=== PATIENT | female | born 1965 | race Caucasian/White ===

== ENCOUNTER 2016-09-08 13:11 | Observation (INO) | payer BC ==
[2016-09-08] VITALS (7 sets, daily range): BP systolic 125–175; BP diastolic 71–84; PULSE 70–94; RESP 16–20; TEMP 97.9–98.6; O2SAT 94–100
[~2016-09-08] VITALS: Ht 160 cm; Wt 75.0 kg
[~2016-09-08 13:11] MED LIST: PHEN-329 PO; SYNT75TA PO
--- NOTE | 2016-09-08 13:16 | PD ---
Physical Exam Date Seen by Provider: September 08, 2016 Time Seen by Provider: 13:14 Narrative Pt is a 51 year old female presenting to the ED with c/o chest pain, dizziness, feeling as if she is going to pass out. This started at 11:30 this morning. Pain radiates through her left shoulder, mild nausea. No tobacco use. VSS. Awaiting bed placement. MDM Supervised Visit with CAROLINE: Yoly Ortega September 08, 2016 13:16
[2016-09-08] MEDS ORDERED: NITROGLYCERIN 0.4 MG SL 25 TABS/BTL SL ONE (13:30)
[2016-09-08] MEDS ORDERED: SODIUM CHLORID 0.9% 500 ML INJ 500 ML IV ONE (13:30)
[2016-09-08] MEDS ORDERED: ASPIRIN 325 MG TAB PO ONE (13:30)
[2016-09-08] MEDS ORDERED: BUPR150XL PO (13:34)
[2016-09-08] MEDS ORDERED: ESTR1TAB PO (13:34)
[2016-09-08] MEDS ORDERED: LIPI10TA PO (13:34)
[2016-09-08] MEDS ORDERED: LEVO.075 PO (13:34)
[2016-09-08 13:56] LABS: AUTOMATED NEUTROPHIL # 5.6 TH/MM3 (1.8-7.7); BASOPHIL % 0.4 % (0.0-2.0); EOSINOPHIL # 0.2 TH/MM3 (0-0.4); HEMATOCRIT 37.4 % (35.0-46.0); HEMO FLAGS DIFF FINAL; LYMPHOCYTE # 1.8 TH/MM3 (1.0-4.8); MEAN CELL VOLUME 87.9 FL (80.0-100.0); MEAN CORPUSCULAR HEMOGLOBIN 29.4 PG (27.0-34.0); MEAN CORPUSCULAR HGB CONC 33.5 % (32.0-36.0); MONO % 4.5 % (0.0-8.0); NEUT % 70.1 % (16.0-70.0); PLATELET COUNT 233 TH/MM3 (150-450); RED BLOOD COUNT 4.26 MIL/MM3 (4.00-5.30); RED CELL DISTRIBUTION WIDTH 13.5 % (11.6-17.2)
--- NOTE | 2016-09-08 14:09 | RADRPT ---
EXAM DATE/TIME: 09/08/2016 13:28 [facility] COMPARISON: CHEST PA & LAT, June 01, 2013, 20:23. INDICATIONS : Chest pain today. MEDICAL HISTORY : None. SURGICAL HISTORY : None. ENCOUNTER: Initial ACUITY: 1 day PAIN SCORE: 3/10 LOCATION: Bilateral chest FINDINGS: A single view of the chest demonstrates the lungs to be symmetrically aerated without evidence of mas s, infiltrate or effusion. The cardiomediastinal contours are unremarkable. Osseous structures are intact. CONCLUSION: No evidence of acute cardiopulmonary disease. Sujit Perez MD on September 08, 2016 at 14:07 Board Certified Radiologist. This report was verified electronically.
[2016-09-08 14:10] LABS: INTERNATIONAL NORMALIZED RATIO 0.9 RATIO; PROTHROMBIN TIME - PATIENT 9.9 SEC (9.8-11.6)
[2016-09-08 14:15] LABS: ANION GAP 7 MEQ/L (5-15); AST (GOT) 24 U/L (15-37); BICARBONATE 28.4 MEQ/L (21.0-32.0); BLOOD UREA NITROGEN 14 MG/DL (7-18); CHLORIDE 103 MEQ/L (98-107); GLOMERULAR FILTRATION RATE 74 ML/MIN (>89); MAGNESIUM 1.9 MG/DL (1.5-2.5); POTASSIUM 3.7 MEQ/L (3.5-5.1); SODIUM (NA) 138 MEQ/L (136-145)
[2016-09-08 14:21] LABS: ALKALINE PHOSPHATASE 112 U/L (45-117); ALT (GPT) 48 U/L (10-53); TOTAL BILIRUBIN ADULT 0.2 MG/DL (0.2-1.0)
[2016-09-08 14:27] LABS: CREATINE KINASE 64 U/L (26-192)
--- NOTE | 2016-09-08 14:54 | PD ---
HPI Chief Complaint: Chest Pain Time Seen by Provider: 14:51 Travel History International Travel<30 days: No Contact w/Intl Traveler<30days: No Traveled to known affect area: No History of Present Illness HPI 51-year-old female that presents to the ED for evaluation of left-sided chest pain to his to the shoulder that comes and goes. Per patient he started 11:00. Per patient she feels lightheaded as well. Per patient pain is not severe but achy. Per patient he comes and goes and nothing really makes it better or worse. She has not taken anything for this. She has no history of high blood pressure, high cholesterol, smoking. She does have a family history of heart disease on the mother who apparently had some sort of stress related or heart attack. She denies any abdominal pain. No nausea or vomiting. No other medical problems reported. She has not seen anybody for this. She has not had any workup for this. 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 She denies any drugs or alcohol. Pain currently is 4 out of 10. It radiates to the left shoulder. PFSH Past Medical History Autoimmune Disease: No High Cholesterol: Yes Diminished Hearing: No Thyroid Disease: Yes ?: Not Past Surgical History Appendectomy: Yes Section: Yes (X 2) Hysterectomy: Yes Other Surgery: Yes (BOWEL RESECTION) Social History Alcohol Use: Yes (COUPLE TIMES A MONTH) Tobacco Use: No Substance Use: No Allergies-Medications (Allergen,Severity, Reaction): Coded Allergies: Penicillin (Verified Allergy, Severe, Anaphylaxis, 09/08/16) Reported Meds & Prescriptions Reported Meds & Active Scripts Active Reported Lipitor (Atorvastatin Calcium) 10 Mg Tab 10 Mg PO HS Estradiol 1 Mg Tab 1 Mg PO DAILY Wellbutrin Xl 24 HR (Bupropion HCl) 150 Mg Tab 150 Mg PO DAILY Synthroid (Levothyroxine Sodium) 75 Mcg Tab 75 Mcg PO DAILY Review of Systems Except as stated in HPI: all other systems reviewed are Neg Physical Exam Narrative GENERAL: SKIN: Warm and dry. HEAD: Atraumatic. Normocephalic. EYES: Pupils equal and round. No scleral icterus. No injection or drainage. ENT: No nasal bleeding or discharge. Mucous membranes pink and moist. Tongue is midline. No uvula deviation. NECK: Trachea midline. No JVD. CARDIOVASCULAR: Regular rate and rhythm. No murmurs, S3, S4. Chest pain is not reproducible with touch. RESPIRATORY: No accessory muscle use. Clear to auscultation. Breath sounds equal bilaterally. GASTROINTESTINAL: Abdomen soft, non-tender, nondistended. Hepatic and splenic margins not palpable. MUSCULOSKELETAL: Extremities without clubbing, cyanosis, or edema. No obvious deformities. Full range of motion of the upper and lower extremities bilaterally. 2+ pulses bilaterally. NEUROLOGICAL: Awake and alert. No obvious cranial nerve deficits. Motor grossly within normal limits. Five out of 5 muscle strength in the arms and legs. Normal speech. PSYCHIATRIC: Appropriate mood and affect; insight and judgment normal. Data Data Last Documented VS Vital Signs Date Time Temp Pulse Resp B/P Pulse Ox O2 Delivery O2 Flow Rate FiO2 09/08/16 13:14 97.9 94 16 175/84 98 Orders Electrocardiogram (09/08/16 ) Electrocardiogram (09/08/16 13:22) Ckmb (Isoenzyme) Profile (09/08/16 13:22) Complete Blood Count With Diff (09/08/16 13:22) Comprehensive Metabolic Panel (09/08/16 13:22) Magnesium (Mg) (09/08/16 13:22) Prothrombin Time / Inr (Pt) (09/08/16 13:22) Act Partial Throm Time (Ptt) (09/08/16 13:22) Troponin I (09/08/16 13:22) Lipase (09/08/16 13:22) Chest, Single Ap (09/08/16 13:22) Ecg Monitoring (09/08/16 13:22) Bilateral Bp Monitoring (09/08/16 13:22) Iv Access Insert/Monitor (09/08/16 13:22) Oximetry (09/08/16 13:22) Oxygen Administration (09/08/16 13:22) Aspirin (Aspirin) (09/08/16 13:30) Nitroglycerin Sl (Nitrostat Sl) (09/08/16 13:30) Sodium Chlorid 0.9% 500 Ml Inj (Ns 500 M (09/08/16 13:30) Labs Laboratory Tests Test 09/08/16 13:35 White Blood Count 8.0 TH/MM3 Red Blood Count 4.26 MIL/MM3 Hemoglobin 12.5 GM/DL Hematocrit 37.4 % Mean Corpuscular Volume 87.9 FL Mean Corpuscular Hemoglobin 29.4 PG Mean Corpuscular Hemoglobin 33.5 % Concent Red Cell Distribution Width 13.5 % Platelet Count 233 TH/MM3 Mean Platelet Volume 9.4 FL Neutrophils (%) (Auto) 70.1 % Lymphocytes (%) (Auto) 23.0 % Monocytes (%) (Auto) 4.5 % Eosinophils (%) (Auto) 2.0 % Basophils (%) (Auto) 0.4 % Neutrophils # (Auto) 5.6 TH/MM3 Lymphocytes # (Auto) 1.8 TH/MM3 Monocytes # (Auto) 0.4 TH/MM3 Eosinophils # (Auto) 0.2 TH/MM3 Basophils # (Auto) 0.0 TH/MM3 CBC Comment DIFF FINAL Differential Comment Prothrombin Time 9.9 SEC Prothromb Time International 0.9 RATIO Ratio Activated Partial 28.0 SEC Thromboplast Time Sodium Level 138 MEQ/L Potassium Level 3.7 MEQ/L Chloride Level 103 MEQ/L Carbon Dioxide Level 28.4 MEQ/L Anion Gap 7 MEQ/L Blood Urea Nitrogen 14 MG/DL Creatinine 0.81 MG/DL Estimat Glomerular Filtration 74 ML/MIN Rate Random Glucose 95 MG/DL Calcium Level 9.1 MG/DL Magnesium Level 1.9 MG/DL Total Bilirubin 0.2 MG/DL Aspartate Amino Transf 24 U/L (AST/SGOT) Alanine Aminotransferase 48 U/L (ALT/SGPT) Alkaline Phosphatase 112 U/L Total Creatine Kinase 64 U/L Troponin I LESS THAN 0.02 NG/ML Total Protein 7.6 GM/DL Albumin 3.7 GM/DL Lipase 149 U/L MDM Medical Decision Making Medical Screen Exam Complete: Yes Emergency Medical Condition: Yes Medical Record Reviewed: Yes Interpretation(s) Last Impressions Chest X-Ray 09/08/16 1322 Signed Impressions: Service Date/Time: September 13:28 - CONCLUSION: No evidence of acute cardiopulmonary disease. Sujit Perez MD CBC & BMP Diagram 09/08/16 13:35 troponin and CKMB negative Differential Diagnosis Chest pain versus ACS versus a typical chest pain Narrative Course 51-year-old female that presents to the ED for evaluation of chest pain. Patient was properly examined and was found to have signs and symptoms consistent appears to be chest pain. Concerning for cardiac. Labs and imaging were ordered. Labs and imaging were essentially unremarkable. At this time patient does have risk factors including age and family history. I recommend admission to the chest pain center. Patient is agreement with this plan. Patient was admitted to the chest pain center. Procedures EKG Prior to Arrival: No Diagnosis Primary Impression: Chest pain in adult Admitting Information Admitting Physician Requests: Observation Duglas Arnold September 08, 2016 14:54
[2016-09-08] MEDS ORDERED: ACETAMINOPHEN 500 MG CPLT PO PRN (16:00)
[2016-09-08] MEDS ORDERED: SODIUM CHLORIDE 0.9% FLUSH 5 ML FLUSH IVF PRN (16:00)
[2016-09-08] MEDS ORDERED: ONDANSETRON HCL 4 MG/2 ML VIAL IV PRN (16:00)
[2016-09-08] MEDS ORDERED: RESP: ALBUTEROL 2.5 MG/IPRATROPIUM 0.5 MG NEB (PRN) INH (16:00)
[2016-09-08] MEDS ORDERED: ACETAMINOPHEN/HYDROcodone 325 MG/7.5 MG TAB PO PRN (16:00)
[2016-09-08] MEDS ORDERED: ALPRAZolam 0.25 MG TAB PO PRN (16:00)
[2016-09-08] MEDS ORDERED: cloNIDine HCL 0.1 MG TAB PO PRN (16:00)
--- NOTE | 2016-09-08 16:06 | HHI.HP ---
[facility] Primary Care Physician Shivam Nevarez M.D. Chief Complaint Chest pain History of Present Illness This is a 51-year-old female that presents to the emergency department for evaluation of a chest discomfort. Patient states that her discomfort began around 11:30 this morning while she was sitting at her desk at work. She describes as a achy discomfort that was left side of her chest radiating to her left shoulder. She found nothing to worsen or improve the symptoms. The worst level discomfort was a 6 out of 10 and now the discomfort is about a 2 out of 10. She was little nauseous and diaphoretic at one point but no shortness of breath. She tried taking a deep breath thinking that may be related to a pulled muscle but taking a deep breath did not worsen or improve her symptoms. Denies calf pain or swelling. Denies recent travel. Denies recent illness. Denies fevers or chills. She has had stress testing in the past and states that they were okay. 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 Review of Systems General: Patient denies fevers, chills recent, and recent travel HEENT: Patient denies headache, sore throat, difficulty swallowing. Cardiovascular: Has the chest discomfort as mentioned above. Denies sensation of heart beating rapidly or irregularly. No syncope. She was diaphoretic. Respiratory: Denies shortness of breath or inspirational chest discomfort. Denies coughing wheezing or hemoptysis. GI: She was nauseous. Patient denies vomiting, diarrhea, abdominal pain, bloody stools. Musculoskeletal: Patient denies joint pain or edema. Denies calf pain or edema. Neurovascular: Patient denies numbness, tingling, weakness in extremities. Denies headache. Endocrine: Denies polyuria and polydipsia. Hematologic: Denies easy bruising. Skin: Denies rash or itching. Past Family Social History Allergies: Coded Allergies: Penicillin (Verified Allergy, Severe, Anaphylaxis, 09/08/16) Past Medical History Hypothyroidism, hyperlipidemia, anxiety, and chronic left knee pain. Denies hypertension, diabetes, and known CAD. Past Surgical History She has had partial left knee replacement. She's had 2 back surgeries most recently 2002. She has had appendectomy, 2, hysterectomy. Reported Medications Reported Meds & Active Scripts Active Reported Lipitor (Atorvastatin Calcium) 10 Mg Tab 10 Mg PO HS Estradiol 1 Mg Tab 1 Mg PO DAILY Wellbutrin Xl 24 HR (Bupropion HCl) 150 Mg Tab 150 Mg PO DAILY Synthroid (Levothyroxine Sodium) 75 Mcg Tab 75 Mcg PO DAILY Active Ordered Medications Current Medications Medications (Trade) Dose Ordered Sig/Mario Alberto Route Start Time Stop Time Status Last Admin (NS Flush) 2 ml UNSCH PRN IVF 09/08/16 16:00 (NS Flush) 2 ml BID IVF 09/08/16 21:00 (Tylenol) 500 mg Q4H PRN PO 09/08/16 16:00 ([place] 7.5-325 Mg) 1 tab Q4H PRN PO 09/08/16 16:00 (Zofran Inj) 4 mg Q6H PRN IV 09/08/16 16:00 (Protonix) 40 mg DAILY PO 09/08/16 16:00 (Aspirin) 325 mg DAILY PO 09/09/16 09:00 (Xanax) 0.25 mg Q8H PRN PO 09/08/16 16:00 (Catapres) 0.1 mg Q4H PRN PO 09/08/16 16:00 (Lipitor) 10 mg HS PO 09/08/16 21:00 (Wellbutrin Xl 24 Hr) 150 mg DAILY PO 09/08/16 16:00 UNV (Synthroid) 75 mcg DAILY@06 PO 09/08/16 16:00 Family History She states her mother had NH at age 65 and a sister at age 53 of myocardial infarction with CHF. Social History Patient is a lifetime nonsmoker. Denies illicit drugs. She has occasional alcohol. Physical Exam Vital Signs Vital Signs Date Time Temp Pulse Resp B/P Pulse Ox O2 Delivery O2 Flow Rate FiO2 09/08/16 15:00 72 16 148/79 100 09/08/16 14:00 80 16 148/72 100 09/08/16 13:14 97.9 94 16 175/84 98 Physical Exam GENERAL: This is a well-nourished, well-developed patient, in no apparent distress. Patient speaks in clear complete sentences. Patient is pleasant. HEENT: Head is atraumatic and normocephalic. Neck is supple without lymphadenopathy and trachea is midline. No JVD or carotid bruits. CARDIOVASCULAR: Regular rate and rhythm without murmurs, gallops, or rubs. RESPIRATORY: Clear to auscultation. Breath sounds equal bilaterally. No wheezes , rales, or rhonchi. Chest wall is nontender. No use of accessory muscles. GASTROINTESTINAL: Abdomen is nontender, nondistended. Abdomen soft. No obvious pulsatile mass or bruit. No CVA tenderness. Strong femoral pulses bilaterally. Normal bowel sounds in all quadrants. MUSCULOSKELETAL: Patient is moving upper and lower extremities freely. No calf tenderness or edema, no Homans sign. Strong pulses in upper and lower extremities. NEUROLOGICAL: Patient is alert and oriented. Cranial nerves 2-12 are grossly intact. No focal deficits and speech is clear. SKIN: No rash and turgor is normal. Laboratory Laboratory Tests Test 09/08/16 13:35 White Blood Count 8.0 Red Blood Count 4.26 Hemoglobin 12.5 Hematocrit 37.4 Mean Corpuscular Volume 87.9 Mean Corpuscular Hemoglobin 29.4 Mean Corpuscular Hemoglobin 33.5 Concent Red Cell Distribution Width 13.5 Platelet Count 233 Mean Platelet Volume 9.4 Neutrophils (%) (Auto) 70.1 Lymphocytes (%) (Auto) 23.0 Monocytes (%) (Auto) 4.5 Eosinophils (%) (Auto) 2.0 Basophils (%) (Auto) 0.4 Neutrophils # (Auto) 5.6 Lymphocytes # (Auto) 1.8 Monocytes # (Auto) 0.4 Eosinophils # (Auto) 0.2 Basophils # (Auto) 0.0 CBC Comment DIFF FINAL Differential Comment Prothrombin Time 9.9 Prothromb Time International 0.9 Ratio Activated Partial 28.0 Thromboplast Time Sodium Level 138 Potassium Level 3.7 Chloride Level 103 Carbon Dioxide Level 28.4 Anion Gap 7 Blood Urea Nitrogen 14 Creatinine 0.81 Estimat Glomerular Filtration 74 Rate Random Glucose 95 Calcium Level 9.1 Magnesium Level 1.9 Total Bilirubin 0.2 Aspartate Amino Transf 24 (AST/SGOT) Alanine Aminotransferase 48 (ALT/SGPT) Alkaline Phosphatase 112 Total Creatine Kinase 64 Troponin I LESS THAN 0.02 Total Protein 7.6 Albumin 3.7 Lipase 149 Result Diagram: 09/08/16 1335 09/08/16 1335 Imaging Last 24 hours Impressions Chest X-Ray 09/08/16 1322 Signed Impressions: Service Date/Time: September 13:28 - CONCLUSION: No evidence of acute cardiopulmonary disease. Sujit Perez MD Course Initial EKG has sinus rhythm without significant ST segment depressions or elevations. Assessment and Plan Assessment and Plan * Chest pain: Patient will have serial cardiac enzymes and EKGs for ruling out purposes. She will be seen by Dr. Perdue of cardiology in the chest pain center tomorrow. She will undergo a Lexiscan if she rules out she cannot walk on a treadmill with her chronic left knee issues. She will be discharged home if the stress test was nonischemic with instructions to follow-up with her primary care physician. * Hypothyroidism: Continue current medication. * Hyperlipidemia: Continue current medication. Patient is stable at this time. She is agreeable to this plan. Navjot Rey September 08, 2016 16:06
[2016-09-08] MEDS: buPROPion HCL 150 MG SUSTAINED RELEASE TAB PO SCH (16:48)
[2016-09-08] MEDS: PANTOPRAZOLE SOD 40 MG DELAYED RELEASE TAB PO SCH (16:48)
[2016-09-08] MEDS: LEVOTHYROXINE SODIUM 75 MCG TAB PO SCH (16:48)
[2016-09-08 17:39] LABS: CREATINE KINASE 59 U/L (26-192)
[2016-09-08 20:16] LABS: CREATINE KINASE 58 U/L (26-192)
[2016-09-08] MEDS: SODIUM CHLORIDE 0.9% FLUSH 5 ML FLUSH IVF SCH (20:34)
[2016-09-08] MEDS ORDERED: ATORVASTATIN 10 MG TAB PO SCH (21:00)
[2016-09-09] VITALS: BP 117/57; PULSE 77; RESP 16; TEMP 96.8; O2SAT 98
[2016-09-09 04:00] VITALS: BP 116/55; PULSE 71; RESP 16; TEMP 96.6; O2SAT 98
[2016-09-09] MEDS: LEVOTHYROXINE SODIUM 75 MCG TAB PO SCH (05:36)
[2016-09-09 07:35] VITALS: O2SAT 98
[2016-09-09 08:00] VITALS: BP 114/63; PULSE 66; RESP 16; TEMP 96.8; O2SAT 97
[2016-09-09] MEDS: PANTOPRAZOLE SOD 40 MG DELAYED RELEASE TAB PO SCH (08:38)
[2016-09-09] MEDS: buPROPion HCL 150 MG SUSTAINED RELEASE TAB PO SCH (08:38)
[2016-09-09] MEDS: SODIUM CHLORIDE 0.9% FLUSH 5 ML FLUSH IVF SCH (08:39)
[2016-09-09] MEDS ORDERED: ASPIRIN 325 MG TAB PO SCH (09:00)
[2016-09-09] MEDS ORDERED: REGADENOSON INJ 0.4 MG/5 ML SYR ONE (09:48)
[2016-09-09 10:46] VITALS: PULSE 67
--- NOTE | 2016-09-09 10:57 | RADRPT ---
EXAM DATE/TIME: 09/09/2016 09:22 [facility] COMPARISON: No previous studies available for comparison. INDICATIONS : Chest pain radiating to left shoulder with dizziness. Angina. DOSE: 25.9 mCi Tc99m Myoview at stress. 8.2 mCi Tc99m Myoview at rest. 0.4 mg Lexiscan STRESS SYMPTOMS: Short of breath. EJECTION FRACTION: 66% MEDICAL HISTORY : Hypercholesterolemia. SURGICAL HISTORY : Hysterectomy. Appendectomy. section. ENCOUNTER: Initial ACUITY: 1 day PAIN SCALE: 7/10 LOCATION: chest TECHNIQUE: The patient underwent pharmacologic stress with infusion of prescribed dose. Continuous ECG tracing was monitored during stress. Gated SPECT imaging was performed after stress and conventional SPECT i maging was performed at rest. The examination was performed on a SPECT/CT scanner, both attenuation and non-corrected datasets were reviewed. FINDINGS: DISTRIBUTION: The maximum perfused segment at stress is in the posterior basal wall. PERFUSION STUDY: The pattern of perfusion at stress is within normal limits. GATED STUDY: There is intact wall motion and thickening without hypokinetic or dyskinetic segments. CONCLUSION: Normal examination. RISK CATEGORY: Low (<1% Annual Mortality Rate) Sujit Forbes MD on September 09, 2016 at 10:53 Board Certified Radiologist. This report was verified electronically.
--- NOTE | 2016-09-09 11:29 | HHI.DCPOC ---
Discharge Care Plan Diagnosis: (1) Chest pain (2) Hyperlipidemia (3) Hypothyroidism Goals to Promote Your Health * To prevent worsening of your condition and complications * To maintain your health at the optimal level Directions to Meet Your Goals Take your medications as prescribed Follow your dietary instruction Follow activity as directed Keep your appointments as scheduled Take your immunizations and boosters as scheduled If your symptoms worsen call your PCP, if no PCP go to Urgent Care Center or Emergency Room Smoking is Dangerous to Your Health. Avoid second hand smoke Call the 24-hour hour crisis hotline for domestic abuse at Navjot Rey September 09, 2016 11:29
[2016-09-09 11:30] VITALS: BP 136/72; PULSE 73; RESP 16; TEMP 97.5; O2SAT 99
--- NOTE | 2016-09-09 13:14 | EKG ---
Date Performed: 09/08/2016 Time Performed: 13:27:37 PTAGE: 51 years EKG: Sinus rhythm BORDERLINE LEFT AXIS DEVIATION BORDERLINE ECG PREVIOUS TRACING : 10/20/2014 20.42 Since previous tracing, no significant change noted DOCTOR: Modesto Perdue Interpretating Date/Time 09/09/2016 13:14:02
--- NOTE | 2016-09-09 13:16 | EKG ---
Date Performed: 09/08/2016 Time Performed: 17:01:16 PTAGE: 51 years EKG: Sinus rhythm MARKED LEFT AXIS DEVIATION INCOMPLETE RIGHT BUNDLE BRANCH BLOCK ABNORMAL ECG INTERPRETATION BASED ON A DEFAULT AGE OF 40 YEARS Since PREVIOUS TRACING , no significant change noted DOCTOR: Modesto Perdue Interpretating Date/Time 09/09/2016 13:15:23
--- NOTE | 2016-09-09 15:34 | EKG ---
Date Performed: 09/08/2016 Time Performed: 19:37:20 PTAGE: 51 years EKG: Sinus rhythm MARKED LEFT AXIS DEVIATION INCOMPLETE RIGHT BUNDLE BRANCH BLOCK ABNORMAL ECG PREVIOUS TRACING : 09/08/2016 13.27 DOCTOR: Ham Antonio Interpretating Date/Time 09/09/2016 15:30:39
--- NOTE | 2016-09-12 13:02 | TR ---
Date Performed: 09/09/2016 Time Performed: 09:58:27 DOCTOR: Modesto Perdue DRUG LIST: CLINICAL HISTORY: REASON FOR TEST: Angina REASON FOR ENDING: OBSERVATION: CONCLUSION: Lexiscan stress test was performed under standard four minute protocol. Radionuclid e was injected one minute prior to ending the test. No electrocardiographic abormalities were present to suggest ischemia. Nuclear imaging and interpretation are pending. COMMENTS:
== END 2016-09-09 13:26 | disposition home or self-care (01) ==
LOC: NEPE 13:11 → NEDA 14:51 → NEPFCDU 16:02
DX: R07.89 Other chest pain (principal); E03.9 Hypothyroidism, unspecified; E78.5 Hyperlipidemia, unspecified; F41.9 Anxiety disorder, unspecified; E78.00 Pure hypercholesterolemia, unspecified; Z88.0 Allergy status to penicillin; Z96.652 Presence of left artificial knee joint
CPT/HCPCS: 71010; 78452; 80053; 82550; 83690; 83735; 84484; 85025; 85610; 85730; 93005; 93017; 96360; 99285; A9502; G0378; J2785; J7040

== ENCOUNTER 2016-11-28 18:51 | Emergency (ER) | payer BC, OTHER ==
[~2016-11-28] VITALS: Ht 160 cm; Wt 77.0 kg
[~2016-11-28 18:51] MED LIST changes: +BUPR150XL PO; +ESTR1TAB PO; +LEVO.075 PO; +LIPI10TA PO; -PHEN-329 PO; -SYNT75TA PO
[2016-11-28 18:53] VITALS: BP 133/74; PULSE 70; RESP 20; TEMP 98.3; O2SAT 98
[2016-11-28] MEDS ORDERED: ORPHENADRINE INJ 60 MG/2 ML AMP IM ONE (20:15)
[2016-11-28] MEDS ORDERED: KETOROLAC TROMETHAMINE 60 MG/2 ML (IM) VIAL IM ONE (20:15)
--- NOTE | 2016-11-28 20:18 | PD ---
HPI Chief Complaint: Back/ Neck Pain or Injury Time Seen by Provider: 20:14 Travel History International Travel<30 days: No Contact w/Intl Traveler<30days: No Traveled to known affect area: No History of Present Illness HPI Patient comes in complaining of mid to low back pain ongoing for several weeks. Patient reports she has a history of this occasionally has flareups. Patient states she saw her primary care doctor who has referred her to a surgeon which has not been able get in with yet. Patient also waiting to get in with pain management. Patient states that her primary care doctor has been giving her steroids and Lortab however symptoms not improving this time and they normally do. Pain is worse with certain movement. Pain radiates up and down her back into her left shoulder. Pain is worse with certain movement. Patient states she normally some improvement with Toradol however primary care doctor cannot do this so she came to the emergency department. Denies any fevers, history of IV drug use, trauma, loss or change of bowel or bladder, chest pain, or shortness of breath. PFSH Past Medical History Autoimmune Disease: No Cardiovascular Problems: No High Cholesterol: Yes Diminished Hearing: No Thyroid Disease: Yes ?: Not Past Surgical History Appendectomy: Yes Section: Yes (X 2) Hysterectomy: Yes Other Surgery: Yes (BOWEL RESECTION) Social History Alcohol Use: Yes (COUPLE TIMES A MONTH) Tobacco Use: No Substance Use: No Allergies-Medications (Allergen,Severity, Reaction): Coded Allergies: Penicillin (Verified Allergy, Severe, Anaphylaxis, 09/08/16) Reported Meds & Prescriptions Reported Meds & Active Scripts Active Flexeril (Cyclobenzaprine HCl) 10 Mg Tab 10 Mg PO Q8HR PRN Naprosyn (Naproxen) 500 Mg Tab 500 Mg PO Q12HR PRN Reported Lipitor (Atorvastatin Calcium) 10 Mg Tab 10 Mg PO HS Estradiol 1 Mg Tab 1 Mg PO DAILY Wellbutrin Xl 24 HR (Bupropion HCl) 150 Mg Tab 150 Mg PO DAILY Synthroid (Levothyroxine Sodium) 75 Mcg Tab 75 Mcg PO DAILY Review of Systems Except as stated in HPI: all other systems reviewed are Neg Physical Exam Narrative GENERAL: Well-developed, overly nourished, in no acute distress, and non-ill appearing. SKIN: Focused skin assessment warm and dry. HEAD: Atraumatic. Normocephalic. EYES: Pupils equal and round. EOMI. No scleral icterus. No injection or drainage. ENT: No nasal bleeding or discharge. Mucous membranes pink and moist. NECK: Trachea midline. Supple. No nuclear rigidity. CARDIOVASCULAR: Regular rate and rhythm. No murmur appreciated. Dorsal pulses 2+, intact, equal bilaterally. Capillary refill less than 2 seconds RESPIRATORY: No accessory muscle use. No respiratory distress. Clear to auscultation. Breath sounds equal bilaterally. MUSCULOSKELETAL: No obvious deformities. No clubbing. No cyanosis. No edema. Full range of motion. Patient reports tenderness to palpation or perivertebral spinal muscles of the lower thoracic spine. Straight leg test is negative bilaterally. There is no tenderness or crepitus over midline throughout spinal column. NEUROLOGICAL: Awake and alert. No obvious cranial nerve deficits. Motor grossly within normal limits. Normal speech. PSYCHIATRIC: Appropriate mood and affect; insight and judgment normal. Data Data Last Documented VS Vital Signs Date Time Temp Pulse Resp B/P Pulse Ox O2 Delivery O2 Flow Rate FiO2 11/28/16 18:53 98.3 70 20 133/74 98 Room Air Orders Orphenadrine Inj (Norflex Inj) (11/28/16 20:15) Ketorolac Inj (Toradol Inj) (11/28/16 20:15) MDM Medical Decision Making Medical Screen Exam Complete: Yes Emergency Medical Condition: Yes Differential Diagnosis Fracture, strain, contusion, acute on chronic pain, other Narrative Course The patient presented complaining of back pain. There was no history of recent fall or trauma. There was no evidence to support genitourinary etiology. There is also no evidence to suggest vascular pathology such as AAA dissection. No fevers or other evidence to suspect infectious processes, abscess, osteomyelitis etc. The patients neurological exam is normal with normal motor and sensory. There is no saddle paresthesias reported and no bowel or bladder incontinence or retention. I suspect the pain is mechanical in nature. Clinical suspicion, plan of care and management was discussed with the patient. The patient was instructed to follow up with their health care provider. The patient was also instructed to return if the pain worsened, changed, or developed weakness or bowel or bladder trouble. The patient agreed with plan. Patient in no obvious distress upon re-evaluation. Patient was asked if they wanted to speak to my attending, which the patient did not wish to do at this time. Any questions/concerns in reference to patient diagnosis/condition discussed and clarified prior to patient's discharge. Reinforced sheer importance of close follow up with patient's primary physician or primary care clinic. Instructed patient to return to ED immediately, if symptoms return/ worsen. Pt showed understanding of above instructions. Further instructions and recommendations were detailed in discharge paperwork. Pt ambulated without difficulty out of ED at discharge. Diagnosis Primary Impression: Back pain Qualified Code: M54.9 - Back pain, unspecified back location, unspecified back pain laterality, unspecified chronicity Patient Instructions: Back Pain (ED), General Instructions Additional Instructions: Follow-up with your primary care physician in 3-5 days for reevaluation. Take all medication as prescribed. Return to the emergency department if symptoms get worse. Med/Other Pt SpecificInfo: Prescription(s) given Scripts Cyclobenzaprine (Flexeril)10 Mg Tab10 Mg PO Q8HR PRN (MUSCLE PAIN) #15 TAB Ref 0 Prov:Valente Martinez MD 11/28/16 Naproxen (Naprosyn)500 Mg Otb115 Mg PO Q12HR PRN (PAIN SCALE 1 TO 10) #14 TAB Ref 0 Prov:Valente Martinez MD 11/28/16 Disposition: 01 DISCHARGE HOME Condition: Stable Jason Vale Nov 28, 2016 20:18
[2016-11-28] MEDS ORDERED: NAPR500 PO (20:19)
[2016-11-28] MEDS ORDERED: CYCL1TAB29 PO (20:19)
== END 2016-11-28 20:58 | disposition home or self-care (01) ==
LOC: NEPD 18:51
DX: M54.9 Dorsalgia, unspecified (principal); M25.512 Pain in left shoulder; E78.00 Pure hypercholesterolemia, unspecified; E07.9 Disorder of thyroid, unspecified; Z79.899 Other long term (current) drug therapy; Z88.0 Allergy status to penicillin
CPT/HCPCS: 96372; 99284; J1885; J2360